=== PATIENT | female | born 1970 | race Caucasian/White ===

== ENCOUNTER 2023-02-16 20:40 | Emergency (ER) | payer BC ==
[~2023-02-16] VITALS: Ht 167.6 cm; Wt 127.0 kg
[2023-02-16 21:02] VITALS: BP_SYST 153; PULSE 62; RESP 18; TEMP 98.3; O2SAT 98
[2023-02-16] MEDS ORDERED: DIPHTH,PERTUSS(ACELL),TET VAC 0.5 ML VIAL (Tdap) I.M. ONE (22:30)
[2023-02-16] MEDS ORDERED: LIDOCAINE/EPI 1% 1:100000 20 ML VIAL INJ ONE (22:45)
[2023-02-16] MEDS ORDERED: IBUPROFEN 400 MG TABLET PO ONE (23:30)
[2023-02-16] MEDS ORDERED: ACETAMINOPHEN 500 MG TABLET PO ONE (23:30)
[2023-02-17 00:05] VITALS: BP_SYST 165; PULSE 62; RESP 18; TEMP 98.3; O2SAT 98
== END 2023-02-17 00:05 | disposition home or self-care (01) ==
LOC: SED 20:40
DX: S01.21XA Laceration without foreign body of nose, initial encounter (principal); W01.198A Fall on same level from slipping, tripping and stumbling with subsequent striking against other object, initial encounter; Y93.89 Activity, other specified; Y92.89 Other specified places as the place of occurrence of the external cause; Y99.8 Other external cause status
CPT/HCPCS: 70450-TC; 70486-TC; 76376; 90715; 99285